=== PATIENT | female | born 1955 | race Caucasian/White ===

== ENCOUNTER → 2018-02-15 | Outpatient (CLI) | payer BC | LOC: M.RAD 12:10 | DX: Z12.31 Encounter for screening mammogram for malignant neoplasm of breast (principal) ==

== ENCOUNTER → 2018-02-18 | Outpatient (CLI) | payer BC | LOC: M.RAD 02-16 08:39 | DX: N63.10 Unspecified lump in the right breast, unspecified quadrant (principal); R92.2 Inconclusive mammogram ==

== ENCOUNTER → 2018-02-19 | Outpatient (CLI) | payer BC ==
--- NOTE | 2018-02-25 13:10 | PATH ---
[address] [place] [address] PATHOLOGY RPT PROCEDURE Name: LIMA SEPULVEDA [id number] Admission: 02/19/18 Date of : 51 Discharge: Report #: [id number] Path Case #: [id number] [facility] Accession Number: [id number] . 01 Material submitted: . BREAST MASS LT . 01 Clinical history: . Left breast mass, 10:00, 6 cm FN . 02 Diagnosis: Left breast mass, 10:00, 6 cm from nipple, image guided core biopsies: - Benign breast tissue with fibrosis and luminal calcification, negative for atypia. (see comment) [facility]/02/22/2018 . 02 Comment: Reviewed with Dr. Dixon Kong who agrees with the diagnosis. ([facility]WAL:[facility] 02/22/2018) . 02 Electronically signed: . Alexei Sousa MD, Pathologist NPI- [id number] . 01 Gross description: . Received in formalin labeled "Sidney, [place], left breast biopsy," and additionally labeled on the requisition as "10:00, 6 cm FN," are multiple needle cores of yellow-reid fibrofatty tissue measuring 2.0 x 3.2 x 0.6 cm in aggregate dimensions. The tissue is submitted in its entirety in cassettes A1 through A3. The cold ischemic time is 9 minutes. The total formalin fixation time is 11 hours and 46 minutes. ([facility]; 02/19/2018) TOB/TOB . 02 Pathologist provided ICD-10: N60.32 . 02 CPT . 281254 Performed at: [address], [place] [id number] MD Jese Temple MD Phone: [phone] Performed at: 02 [facility] [address], [place], [place] [id number] MD Alexei Sousa MD Phone: [phone]
== END | disposition home or self-care (01) ==
LOC: M.ULTRA 07:56
DX: D24.2 Benign neoplasm of left breast (principal); R92.0 Mammographic microcalcification found on diagnostic imaging of breast

== ENCOUNTER → 2019-01-28 | Outpatient (CLI) | payer BC, MEDICARE | LOC: M.RAD 09:30 | DX: Z12.31 Encounter for screening mammogram for malignant neoplasm of breast (principal) ==

== ENCOUNTER → 2019-09-26 | Outpatient (CLI) | payer OTHER | LOC: M.CT 10:39 | DX: Z13.6 Encounter for screening for cardiovascular disorders (principal); Z98.890 Other specified postprocedural states ==

== ENCOUNTER → 2020-01-11 | Outpatient (CLI) | payer OTHER | LOC: M.LAB 07:21 | PROVIDERS: ATTEND Internal Medicine Gastroenterology | DX: Z01.812 Encounter for preprocedural laboratory examination (principal); Z11.59 Encounter for screening for other viral diseases; Z80.0 Family history of malignant neoplasm of digestive organs ==

== ENCOUNTER → 2020-01-26 | Outpatient (CLI) | payer OTHER, MEDICARE | LOC: M.RAD 13:56 | PROVIDERS: ATTEND Family Medicine | DX: Z12.31 Encounter for screening mammogram for malignant neoplasm of breast (principal) ==

== ENCOUNTER → 2021-04-15 | Outpatient (CLI) | payer OTHER, MEDICARE | LOC: M.RAD 12:48 | PROVIDERS: ATTEND Family Medicine | DX: Z12.31 Encounter for screening mammogram for malignant neoplasm of breast (principal) ==